=== PATIENT | male | born 1960 | race Caucasian/White ===

== ENCOUNTER → 2022-01-30 | Day surgery (SDC) | payer BC ==
[2022-01-30] MEDS: Lactated Ringers 1,000 ML IV SCH (08:31)
[2022-01-30 10:21] VITALS: BP 129/69; PULSE 53
== END ==
LOC: CC.SDS 08:09
PROVIDERS: ATTEND Family Medicine
DX: K92.1 Melena (principal); R19.4 Change in bowel habit; K64.8 Other hemorrhoids; I10 Essential (primary) hypertension; I25.2 Old myocardial infarction; E78.00 Pure hypercholesterolemia, unspecified; N40.0 Benign prostatic hyperplasia without lower urinary tract symptoms; Z79.899 Other long term (current) drug therapy; Z79.82 Long term (current) use of aspirin; Z79.02 Long term (current) use of antithrombotics/antiplatelets
CPT/HCPCS: J7120